=== PATIENT | female | born 1950 | race Caucasian/White ===

== ENCOUNTER → 2021-06-01 | Outpatient (CLI) | payer OTHER ==
[~2021-06-01] MED LIST: ASPIRIN81 MG PO; BYSTOLIC5 MG PO; CALCIUM PO; CRESTOR10 MG PO; DIOVAN40 MG PO; GLUCOSAMINE H1500 MG PO; HYDROCHLOROTHIA25 MG PO; IRON PO; LANSOPRAZOLE30 MG PO; METFORMIN HCL500 MG PO; MIRALAX PACK 171 PKT PO; NAPROXEN250 MG PO; NORCO 7.5-3251 EACH PO; PLAVIX 75 MG TA75 MG PO; PROCTOFOAM-HC 110 G1 PR
== END ==
LOC: HEART 5 09:49
DX: Z01.810 Encounter for preprocedural cardiovascular examination (principal); I35.2 Nonrheumatic aortic (valve) stenosis with insufficiency; I51.9 Heart disease, unspecified
CPT/HCPCS: 93306

== ENCOUNTER → 2021-08-09 | Outpatient (CLI) | payer OTHER | LOC: KOH-I 13:36 | DX: M25.572 Pain in left ankle and joints of left foot (principal); S96.812A Strain of other specified muscles and tendons at ankle and foot level, left foot, initial encounter; M25.472 Effusion, left ankle | CPT/HCPCS: 73721 ==